=== PATIENT | male | born 1960 | race Caucasian/White ===

== ENCOUNTER 2019-07-29 10:40 | Outpatient (CLI) | payer BC ==
[2019-07-29] MEDS ORDERED: LEVO100T PO (11:21)
== END 2019-07-29 23:59 | disposition home or self-care (01) ==
LOC: STAR 10:40
PROVIDERS: ATTEND Orthopaedic Surgery
DX: Z01.818 Encounter for other preprocedural examination (principal); S83.231A Complex tear of medial meniscus, current injury, right knee, initial encounter; X58.XXXA Exposure to other specified factors, initial encounter; Y93.89 Activity, other specified; Y92.89 Other specified places as the place of occurrence of the external cause; Y99.8 Other external cause status; I51.7 Cardiomegaly; H05.3 Deformity of orbit
CPT/HCPCS: 93005

== ENCOUNTER 2019-08-04 09:43 | Day surgery (SDC) | payer BC ==
[~2019-08-04] VITALS: Ht 182.9 cm; Wt 81.2 kg
[~2019-08-04 09:43] MED LIST: LEVO100T PO
[2019-08-04] MEDS ORDERED: LACTATED RINGERS 1,000 ML IV SCH (10:18)
[2019-08-04] MEDS ORDERED: MIDAZOLAM 1 MG/ML, 2ML ONE (11:45)
[2019-08-04] MEDS ORDERED: FENTANYL PF 100 MCG/2ML ONE ×2 (11:45→12:59)
[2019-08-04] MEDS ORDERED: KETOROLAC 30 MG/1 ML IV PRN (12:30)
[2019-08-04] MEDS ORDERED: MEPERIDINE/PF 25MG/0.5ML IVPush PRN (12:30)
[2019-08-04] MEDS ORDERED: hydrALAzine 20 MG/ML, 1ML IV PRN (12:30)
[2019-08-04] MEDS ORDERED: CEFAZOLIN 1,000 MG ONE (12:30)
[2019-08-04] MEDS ORDERED: PROPOFOL 10 MG/ML, 20ML ONE (12:30)
[2019-08-04] MEDS ORDERED: ALBUTEROL SULFATE 2.5 MG/3 ML NPPB PRN (12:30)
[2019-08-04] MEDS ORDERED: DEXAMETHASONE 4 MG/ML, 1ML ONE (12:30)
[2019-08-04] MEDS ORDERED: ACETAMINOPHEN 325 MG TABLET PO PRN (12:30)
[2019-08-04] MEDS ORDERED: PROMETHAZINE 25 MG/ML, 1ML IV PRN (12:30)
[2019-08-04] MEDS ORDERED: LABETALOL 5MG/ML, 20ML IV PRN (12:30)
[2019-08-04] MEDS ORDERED: HYDROmorphone 2 MG/ML, 1ML IVPush PRN (12:30)
[2019-08-04] MEDS ORDERED: ONDANSETRON 2MG/ML, 2ML ONE (12:30)
[2019-08-04] MEDS ORDERED: DIAZEPAM 5 MG/ML, 2ML IVPush PRN (12:30)
[2019-08-04] MEDS ORDERED: KETOROLAC 30 MG/1 ML ONE (12:59)
[2019-08-04] MEDS ORDERED: OXYcodone 5 MG/5 ML ORAL.SOL UDC ONE ×2 (12:59→13:26)
[2019-08-04] MEDS ORDERED: ACETAMINOPHEN 650 MG/20.3 ML UDC ONE (12:59)
[2019-08-04] MEDS: FENTANYL PF 100 MCG/2ML IV PRN ×3 (13:08→13:35)
[2019-08-04] MEDS: OXYcodone 5 MG/5 ML ORAL.SOL UDC PO PRN ×2 (13:09→13:30)
== END 2019-08-04 15:00 | disposition home or self-care (01) ==
LOC: OUT 09:43
PROVIDERS: ATTEND Orthopaedic Surgery
DX: S83.231A Complex tear of medial meniscus, current injury, right knee, initial encounter (principal); S83.281A Other tear of lateral meniscus, current injury, right knee, initial encounter; X58.XXXA Exposure to other specified factors, initial encounter; Y93.89 Activity, other specified; Y92.89 Other specified places as the place of occurrence of the external cause; Y99.8 Other external cause status; M94.261 Chondromalacia, right knee
CPT/HCPCS: 29880; J0690; J1100; J1885; J2250; J2405; J2704; J3010; J7120